=== PATIENT | male | born 1970 | race Hispanic/Latino ===

== ENCOUNTER 2021-12-03 07:21 | Observation (INO) | payer OTHER ==
[2021-12-01 09:55] VITALS: BP 156/80
[2021-12-01 10:13] LABS: BASOPHILS % (AUTO) 0.5 % (0.0-5.0); EOSINOPHILS % (AUTO) 1.9 % (0.0-8.0); HEMATOCRIT 38.4 % (42-54); LYMPHOCYTES % (AUTO) 14.5 % (21.0-51.0); MEAN CORPUSCULAR HEMOGLOBIN 31.7 pg (27.0-33.0); MEAN CORPUSCULAR HGB CONC 33.9 g/dL (32.0-36.0); MEAN CORPUSCULAR VOLUME 93.7 fL (79-99); MONOCYTES % (AUTO) 13.8 % (3.0-13.0); NEUTROPHILS % (AUTO) 69.1 % (40.0-77.0); PLATELET COUNT (AUTO) 217 K/uL (130-400); RED CELL DISTRIBUTION WIDTH 12.5 % (11.0-15.5); WHITE BLOOD COUNT (AUTO) 4.1 K/uL (4.8-10.8)
[2021-12-01 10:26] LABS: CREATININE 0.8 mg/dL (0.5-1.5); POTASSIUM 4.8 mmol/L (3.5-5.1)
[2021-12-01 10:28] LABS: INR 0.97 (0.85-1.15); PROTHROMBIN TIME 10.6 SEC (9.6-11.6)
[2021-12-01 10:29] LABS: PARTIAL THROMBOPLASTIN TIME 27.8 SEC (26.3-35.5)
[~2021-12-03] VITALS: Ht 185.4 cm; Wt 131.5 kg
[2021-12-03] VITALS (24 sets, daily range): BP systolic 125–151; BP diastolic 62–96
[2021-12-03] MEDS: CEFAZOLIN SODIUM 1 GM VIAL IVP SCH ×3 (06:00→18:21)
[~2021-12-03 07:21] MED LIST: CHOL500051 PO; DULO60CA64 PO; LACTATED RINGERS 1000ML 1,000 ML IV SCH; LOSA100T2 PO; MAGN400T56 PO; NIFE-40 PO
[2021-12-03] MEDS ORDERED: TRANEXAMIC ACID 1000MG/10ML ONE (09:27)
[2021-12-03] MEDS: [UNRECOGNIZED DRUG - OTHER] IV SCH ×10 (09:30→13:11)
[2021-12-03] MEDS ORDERED: ONDANSETRON 4MG INJ ONE (10:12)
[2021-12-03] MEDS ORDERED: MIDAZOLAM HCL 1 MG/ML 2ML VIAL ONE (10:12)
[2021-12-03] MEDS ORDERED: FENTANYL CITRATE PF 50 MCG/1 ML 2ML VIAL ONE (10:12)
[2021-12-03] MEDS ORDERED: PROPOFOL 10 MG/ML 20ML VIAL IV ONE ×2 (10:19→10:24)
[2021-12-03] MEDS ORDERED: ROCURONIUM 10MG/1ML SYR 10 MG/ML ML ONE ×2 (10:19→10:36)
[2021-12-03] MEDS ORDERED: DEXAMETHASONE SOD PHOSPHATE 10MG/ML 1ML VIAL ONE (10:21)
[2021-12-03] MEDS ORDERED: FENTANYL CITRATE PF 50 MCG/1 ML 5ML AMP IV ONE ×2 (11:08→13:21)
[2021-12-03] MEDS ORDERED: GLYCOPYRROLATE 1 MG/5 ML SYRINGE ONE (13:45)
[2021-12-03] MEDS ORDERED: NEOSTIGMINE 5MG/5ML SYR IV ONE (13:45)
[2021-12-03] MEDS: ACETAMINOPHEN 500 MG TABLET PO SCH ×2 (14:00→22:43)
[2021-12-03] MEDS ORDERED: KCL 20 MEQ ERTAB PO PRN (14:00)
[2021-12-03] MEDS: 0.9%NACL 1000ML 1,000 ML IV SCH ×2 (14:00→23:36)
[2021-12-03] MEDS ORDERED: HYDROCODONE/ACETAMINOPHEN 5/325 MG TAB PO PRN (14:00)
[2021-12-03] MEDS ORDERED: POTASSIUM CHLORIDE 10% ELIXIR 20 MEQ/15 ML UDCUP PO PRN (14:00)
[2021-12-03] MEDS ORDERED: ONDANSETRON 4MG INJ IVP PRN (14:00)
[2021-12-03] MEDS ORDERED: POTASSIUM CHLORIDE 20MEQ/100ML 100 ML IV PRN (14:00)
[2021-12-03] MEDS ORDERED: LIDOCAINE HCL-MPF 1% 2ML VIAL IV PRN (14:00)
[2021-12-03] MEDS ORDERED: MEPERIDINE-PF 25 MG/ML SYG ONE ×3 (14:09→14:39)
[2021-12-03] MEDS: MORPHINE 4 MG SYG IVP PRN ×2 (18:00→23:21)
[2021-12-03] MEDS: TRAMADOL HCL 50 MG TABLET PO SCH (18:21)
[2021-12-03] MEDS: MAGNESIUM OXIDE 400 MG TABLET PO SCH (20:21)
[2021-12-03] MEDS: ASPIRIN 81 MG EC TAB PO SCH (20:21)
[2021-12-03] MEDS: FAMOTIDINE 20MG TAB PO SCH (20:21)
[2021-12-03] MEDS: HYDROCODONE/ACETAMINOPHEN 10/325 MG TAB PO PRN (20:21)
[2021-12-03] MEDS: KETOROLAC 15MG/ML VIAL (15MG/ML) IV PRN (20:21)
[2021-12-04] MEDS: CEFAZOLIN SODIUM 1 GM VIAL IVP SCH (01:44)
[2021-12-04] MEDS: TRAMADOL HCL 50 MG TABLET PO SCH ×4 (01:44→17:57)
[2021-12-04 03:31] VITALS: BP_SYST 112; BP_SYST 163; BP_DIAS 75; BP_DIAS 77
[2021-12-04 05:28] LABS: HEMATOCRIT 31.5 % (42-54); MEAN CORPUSCULAR HEMOGLOBIN 31.9 pg (27.0-33.0); MEAN CORPUSCULAR HGB CONC 33.3 g/dL (32.0-36.0); MEAN CORPUSCULAR VOLUME 95.7 fL (79-99); RED BLOOD CELL COUNT(AUTO) 3.29 MIL/uL (4.50-6.20); RED CELL DISTRIBUTION WIDTH 12.9 % (11.0-15.5); WHITE BLOOD COUNT (AUTO) 6.8 K/uL (4.8-10.8)
[2021-12-04 05:40] LABS: CREATININE 0.8 mg/dL (0.5-1.5); POTASSIUM 4.2 mmol/L (3.5-5.1)
[2021-12-04] MEDS: ACETAMINOPHEN 500 MG TABLET PO SCH ×3 (06:00→21:35)
[2021-12-04 08:00] VITALS: BP 124/74
[2021-12-04] MEDS: FAMOTIDINE 20MG TAB PO SCH ×2 (09:07→20:30)
[2021-12-04] MEDS: ASPIRIN 81 MG EC TAB PO SCH ×2 (09:07→20:30)
[2021-12-04] MEDS: POLYETHYLENE GLYCOL 3350 17 GM POWD.PACK PO SCH (09:07)
[2021-12-04] MEDS: MAGNESIUM OXIDE 400 MG TABLET PO SCH ×2 (09:07→20:30)
[2021-12-04] MEDS: LOSARTAN 100 MG TABLET PO SCH (09:07)
[2021-12-04] MEDS: DULOXETINE HCL 30 MG CAP PO SCH (09:07)
[2021-12-04] MEDS: NIFEDIPINE ER 30 MG TAB PO SCH (09:07)
[2021-12-04] MEDS: 0.9%NACL 1000ML 1,000 ML IV SCH (09:08)
[2021-12-04] MEDS: MORPHINE 4 MG SYG IVP PRN ×2 (09:08→22:54)
[2021-12-04 12:00] VITALS: BP 117/71
[2021-12-04 16:00] VITALS: BP 127/80
[2021-12-04 19:00] VITALS: BP 108/68
[2021-12-04] MEDS: HYDROCODONE/ACETAMINOPHEN 10/325 MG TAB PO PRN (20:33)
[2021-12-05] VITALS: BP 117/77
[2021-12-05] MEDS: KETOROLAC 15MG/ML VIAL (15MG/ML) IV PRN (02:34)
[2021-12-05 04:00] VITALS: BP 128/84
[2021-12-05] MEDS: ACETAMINOPHEN 500 MG TABLET PO SCH (04:11)
[2021-12-05] MEDS: TRAMADOL HCL 50 MG TABLET PO SCH ×2 (05:16)
[2021-12-05 08:14] VITALS: BP 133/77
[2021-12-05] MEDS: DULOXETINE HCL 30 MG CAP PO SCH (09:51)
[2021-12-05] MEDS: MAGNESIUM OXIDE 400 MG TABLET PO SCH (09:51)
[2021-12-05] MEDS: FAMOTIDINE 20MG TAB PO SCH (09:51)
[2021-12-05] MEDS: LOSARTAN 100 MG TABLET PO SCH (09:51)
[2021-12-05] MEDS: NIFEDIPINE ER 30 MG TAB PO SCH (09:51)
[2021-12-05] MEDS: POLYETHYLENE GLYCOL 3350 17 GM POWD.PACK PO SCH (09:51)
[2021-12-05] MEDS: ASPIRIN 81 MG EC TAB PO SCH (09:51)
[2021-12-05 11:37] VITALS: BP 129/75
[2021-12-06] MEDS ORDERED: BISACODYL 10 MG SUPP.RECT RC PRN (14:00)
== END 2021-12-05 12:40 | disposition home or self-care (01) ==
LOC: DAH 07:21 → DAHIP 07:22 → EDSTATUS 09:00 → 4DH 15:21
PROVIDERS: ADMIT Orthopaedic Surgery; ATTEND Orthopaedic Surgery
DX: M17.12 Unilateral primary osteoarthritis, left knee (principal); Z20.822 Contact with and (suspected) exposure to COVID-19; R26.89 Other abnormalities of gait and mobility; M21.162 Varus deformity, not elsewhere classified, left knee; M65.9 Synovitis and tenosynovitis, unspecified; E66.01 Morbid (severe) obesity due to excess calories; E87.1 Hypo-osmolality and hyponatremia; E11.9 Type 2 diabetes mellitus without complications; I10 Essential (primary) hypertension; Z68.38 Body mass index [BMI] 38.0-38.9, adult; Z96.652 Presence of left artificial knee joint; Z79.899 Other long term (current) drug therapy
CPT/HCPCS: 0055T; 27447; 36415; 64447; 76942; 80048; 85025; 85027; 85610; 85730; 87635; 87641; 93005; 96374; 96375; 96376; 97039; C9803; G0378; J0171; J0690; J0735; J1100; J1885; J2175; J2250; J2270; J2405; J2704; J2710; J2795; J3010; J3490; J7030; J7120

== ENCOUNTER → 2022-02-17 | Outpatient (CLI) | payer OTHER ==
[~2022-02-17] MED LIST changes: -LACTATED RINGERS 1000ML 1,000 ML IV SCH
== END | disposition home or self-care (01) ==
LOC: RAH 08:24
PROVIDERS: ATTEND Orthopaedic Surgery
DX: S83.281A Other tear of lateral meniscus, current injury, right knee, initial encounter (principal); M25.561 Pain in right knee; M17.11 Unilateral primary osteoarthritis, right knee; X58.XXXA Exposure to other specified factors, initial encounter; Y93.89 Activity, other specified; Y92.89 Other specified places as the place of occurrence of the external cause; Y99.8 Other external cause status
CPT/HCPCS: 73721

== ENCOUNTER 2022-05-31 07:52 | Observation (INO) | payer OTHER ==
[2022-05-25 11:24] LABS: BASOPHILS % (AUTO) 0.8 % (0.0-5.0); EOSINOPHILS % (AUTO) 1.6 % (0.0-8.0); HEMATOCRIT 35.5 % (42-54); LYMPHOCYTES % (AUTO) 17.6 % (21.0-51.0); MEAN CORPUSCULAR HEMOGLOBIN 28.9 pg (27.0-33.0); MEAN CORPUSCULAR VOLUME 87.7 fL (79-99); MONOCYTES % (AUTO) 22.9 % (3.0-13.0); NEUTROPHILS % (AUTO) 57.1 % (40.0-77.0); PLATELET COUNT (AUTO) 190 K/uL (130-400); RED BLOOD CELL COUNT(AUTO) 4.05 MIL/uL (4.50-6.20); RED CELL DISTRIBUTION WIDTH 13.9 % (11.0-15.5); WHITE BLOOD COUNT (AUTO) 2.5 K/uL (4.8-10.8)
[2022-05-25 11:37] LABS: INR 0.98 (0.85-1.15); PROTHROMBIN TIME 10.7 SEC (9.6-11.6)
[2022-05-25 11:40] LABS: CREATININE 0.8 mg/dL (0.5-1.5); POTASSIUM 4.6 mmol/L (3.5-5.1)
[2022-05-25 13:10] LABS: LYMPHOCYTES % (MANUAL) 20 % (22-44); MONOCYTES % (MANUAL) 24 % (2-9); SEGMENTED NEUTROPHILS % 56 % (40-70)
[2022-05-25 13:11] LABS: MAN.DIFF COMMENT-IMPRESSION MANUAL DIFFERENTIAL; PLATELET MORPHOLOGY COMMENT ADEQUATE
[2022-05-30 10:37] VITALS: BP 159/84
[2022-05-31] VITALS (26 sets, daily range): BP systolic 102–155; BP diastolic 60–98
[~2022-05-31] VITALS: Ht 185.4 cm; Wt 132.1 kg
[2022-05-31] MEDS: CEFAZOLIN SODIUM 1 GM VIAL IVPB SCH ×2 (05:00→18:22)
[~2022-05-31 07:52] MED LIST changes: +AMLO-257 PO; -DULO60CA64 PO; +FAMO20TA8 PO; -NIFE-40 PO; +folic acid PO
[2022-05-31] MEDS ORDERED: CEFAZOLIN SODIUM 2 GM VIAL ONE (08:49)
[2022-05-31] MEDS ORDERED: LACTATED RINGERS 1000ML 1,000 ML IV ONE (08:49)
[2022-05-31] MEDS ORDERED: ZINC50TA64 PO (09:04)
[2022-05-31] MEDS ORDERED: DULO60CA64 PO (09:04)
[2022-05-31] MEDS ORDERED: TRANEXAMIC ACID 1000MG/10ML ONE ×2 (10:50→13:13)
[2022-05-31] MEDS ORDERED: LIDOCAINE PF 100MG/5ML (2%) SYRINGE 5ML ONE (13:04)
[2022-05-31] MEDS ORDERED: MIDAZOLAM HCL 1 MG/ML 2ML VIAL ONE (13:05)
[2022-05-31] MEDS ORDERED: PROPOFOL 10 MG/ML 20ML VIAL IV ONE (13:05)
[2022-05-31] MEDS ORDERED: ROCURONIUM 10MG/1ML SYR 10 MG/ML ML ONE ×2 (13:06→14:51)
[2022-05-31] MEDS ORDERED: FENTANYL CITRATE PF 50 MCG/1 ML 2ML VIAL ONE (13:06)
[2022-05-31] MEDS ORDERED: ROPIVACAINE 0.5% 5MG/ML 30ML IJ ONE (13:28)
[2022-05-31] MEDS ORDERED: CEFAZOLIN SODIUM 2 GM VIAL IVPB ONE (13:35)
[2022-05-31] MEDS ORDERED: TRANEXAMIC ACID 1000MG/10ML IV ONE (13:40)
[2022-05-31] MEDS ORDERED: EPHEDRINE SULFATE 50 MG/ML AMPULE ONE (14:05)
[2022-05-31] MEDS ORDERED: ONDANSETRON 4MG INJ ONE (14:24)
[2022-05-31] MEDS ORDERED: DEXAMETHASONE SOD PHOSPHATE 10MG/ML 1ML VIAL ONE (14:25)
[2022-05-31] MEDS ORDERED: KETOROLAC 30MG VIAL (30MG/ML) ONE (14:25)
[2022-05-31] MEDS ORDERED: HYDROMORPHONE 1 MG INJ ONE ×2 (15:27→15:30)
[2022-05-31] MEDS ORDERED: SUGAMMADEX SODIUM 200 MG/2 ML VIAL IV ONE (15:29)
[2022-05-31] MEDS ORDERED: POTASSIUM CHLORIDE 20MEQ/100ML 100 ML IV PRN (16:00)
[2022-05-31] MEDS ORDERED: KCL 20 MEQ ERTAB PO PRN (16:00)
[2022-05-31] MEDS ORDERED: LIDOCAINE HCL-MPF 1% 2ML VIAL IV PRN (16:00)
[2022-05-31] MEDS ORDERED: TRANEXAMIC ACID 1000MG/10ML IV SCH (16:00)
[2022-05-31] MEDS ORDERED: 0.9%NACL 1000ML 1,000 ML IV SCH (16:00)
[2022-05-31] MEDS ORDERED: POTASSIUM CHLORIDE 10% ELIXIR 20 MEQ/15 ML UDCUP PO PRN (16:00)
[2022-05-31] MEDS ORDERED: HYDROCODONE/ACETAMINOPHEN 5/325 MG TAB PO PRN (16:00)
[2022-05-31] MEDS ORDERED: ONDANSETRON 4MG INJ IVP PRN (16:00)
[2022-05-31] MEDS: ACETAMINOPHEN 1,000 MG/100 ML VIAL IV SCH ×2 (16:20→20:38)
[2022-05-31] MEDS ORDERED: MEPERIDINE-PF 25 MG/ML SYG ONE (16:24)
[2022-05-31] MEDS: CALDOLOR 800MG+NS 250ML 250 ML IV SCH (17:28)
[2022-05-31] MEDS: MORPHINE 4 MG SYG IVP PRN (17:28)
[2022-05-31] MEDS ORDERED: IBUPROFEN 800MG + NS 250ML IV SCH (19:00)
[2022-05-31] MEDS: FAMOTIDINE 20MG TAB PO SCH (20:36)
[2022-05-31] MEDS: CEFAZOLIN SODIUM 1 GM VIAL IVP SCH (20:36)
[2022-05-31] MEDS: ASPIRIN 81 MG EC TAB PO SCH (20:37)
[2022-05-31] MEDS: MAGNESIUM OXIDE 400 MG TABLET PO SCH (20:37)
[2022-06-01] VITALS (7 sets, daily range): BP systolic 106–157; BP diastolic 52–85
[2022-06-01] MEDS ORDERED: ACETAMINOPHEN 500 MG TABLET ONE (02:36)
[2022-06-01] MEDS: CALDOLOR 800MG+NS 250ML 250 ML IV SCH ×2 (02:46→11:18)
[2022-06-01] MEDS ORDERED: ACETAMINOPHEN 500 MG TABLET PO ONE (03:00)
[2022-06-01] MEDS: ACETAMINOPHEN 1,000 MG/100 ML VIAL IV SCH (03:24)
[2022-06-01] MEDS: CEFAZOLIN SODIUM 1 GM VIAL IVP SCH (04:41)
[2022-06-01] MEDS: HYDROCODONE/ACETAMINOPHEN 10/325 MG TAB PO PRN ×4 (04:47→18:52)
[2022-06-01 05:28] LABS: HEMATOCRIT 29.2 % (42-54); MEAN CORPUSCULAR HEMOGLOBIN 29.8 pg (27.0-33.0); MEAN CORPUSCULAR HGB CONC 33.2 g/dL (32.0-36.0); MEAN CORPUSCULAR VOLUME 89.6 fL (79-99); RED BLOOD CELL COUNT(AUTO) 3.26 MIL/uL (4.50-6.20); RED CELL DISTRIBUTION WIDTH 13.5 % (11.0-15.5); WHITE BLOOD COUNT (AUTO) 5.9 K/uL (4.8-10.8)
[2022-06-01 05:38] LABS: CREATININE 0.8 mg/dL (0.5-1.5); POTASSIUM 4.3 mmol/L (3.5-5.1)
[2022-06-01] MEDS: ***HM***(Cholecalciferol (Vitamin D3) (Vitamin D3) 125 MCG) PO SCH (09:00)
[2022-06-01] MEDS: FAMOTIDINE 20MG TAB PO SCH ×3 (09:00→19:47)
[2022-06-01] MEDS: DULOXETINE HCL 30 MG CAP PO SCH (09:04)
[2022-06-01] MEDS: AMLODIPINE 5 MG TAB PO SCH (09:04)
[2022-06-01] MEDS: MAGNESIUM OXIDE 400 MG TABLET PO SCH ×2 (09:04→19:47)
[2022-06-01] MEDS: ZINC SULFATE 220 CAPSULE PO SCH (09:04)
[2022-06-01] MEDS: LOSARTAN 100 MG TABLET PO SCH (09:04)
[2022-06-01] MEDS: POLYETHYLENE GLYCOL 3350 17 GM POWD.PACK PO SCH (09:04)
[2022-06-01] MEDS: ASPIRIN 81 MG EC TAB PO SCH ×2 (09:04→19:47)
[2022-06-01] MEDS: FOLIC ACID 1 MG TABLET PO SCH (09:04)
[2022-06-01] MEDS: MORPHINE 4 MG SYG IVP PRN (11:18)
[2022-06-01] MEDS: CEFAZOLIN SODIUM 1 GM VIAL IVPB SCH (19:17)
[2022-06-02 03:57] VITALS: BP 116/74
[2022-06-02] MEDS: HYDROCODONE/ACETAMINOPHEN 10/325 MG TAB PO PRN ×3 (04:02→13:05)
[2022-06-02] MEDS: FAMOTIDINE 20MG TAB PO SCH ×2 (07:55→09:01)
[2022-06-02] MEDS: ***HM***(Cholecalciferol (Vitamin D3) (Vitamin D3) 125 MCG) PO SCH (07:55)
[2022-06-02 08:00] VITALS: BP 117/70
[2022-06-02] MEDS ORDERED: FERROUS GLUCONATE 324 TABLET PO SCH (09:00)
[2022-06-02] MEDS: LOSARTAN 100 MG TABLET PO SCH (09:00)
[2022-06-02] MEDS: MAGNESIUM OXIDE 400 MG TABLET PO SCH (09:01)
[2022-06-02] MEDS: ASPIRIN 81 MG EC TAB PO SCH (09:01)
[2022-06-02] MEDS: ZINC SULFATE 220 CAPSULE PO SCH (09:01)
[2022-06-02] MEDS: FOLIC ACID 1 MG TABLET PO SCH (09:01)
[2022-06-02] MEDS: DULOXETINE HCL 30 MG CAP PO SCH (09:01)
[2022-06-02] MEDS: AMLODIPINE 5 MG TAB PO SCH (09:02)
[2022-06-02] MEDS: POLYETHYLENE GLYCOL 3350 17 GM POWD.PACK PO SCH (09:02)
[2022-06-02 12:00] VITALS: BP 123/75
[2022-06-03] MEDS ORDERED: BISACODYL 10 MG SUPP.RECT RC PRN (16:00)
== END 2022-06-02 13:45 | disposition home or self-care (01) ==
LOC: DAH 07:52 → DAHIP 07:53 → DAH 07:53 → 4AH 17:00
PROVIDERS: ADMIT Orthopaedic Surgery; ATTEND Orthopaedic Surgery
DX: M17.11 Unilateral primary osteoarthritis, right knee (principal); Z20.822 Contact with and (suspected) exposure to COVID-19; E66.9 Obesity, unspecified; M06.4 Inflammatory polyarthropathy; M65.9 Synovitis and tenosynovitis, unspecified; G89.29 Other chronic pain; Z96.651 Presence of right artificial knee joint; Z79.899 Other long term (current) drug therapy; Z98.890 Other specified postprocedural states; Z68.38 Body mass index [BMI] 38.0-38.9, adult
CPT/HCPCS: 80048 ×2; 85025; 85610; 85730; 87426; 36415 ×2; 87641; 27447; 96365; 96366 ×2; 96375; 96367; 96376; 85027; 97161; 97039 ×3; 97116 ×3; 97530 ×2; S2900; A6260; G0378 ×43; A4663; J7030; A4649 ×4; J7120; J3010; J0690 ×4; J1170 ×2; J3490 ×4; J1100; J2001; J2250; J2704; J2405; J2270 ×2; J1885; J2175; J2795; J1741 ×3; G0168; A4930; C1776 ×4; A6255; A6254; A4215; A4223; A4222; A4221

== ENCOUNTER 2022-07-21 07:14 | Observation (INO) | payer OTHER ==
[2022-07-20 16:12] VITALS: BP 155/83
[2022-07-20 16:19] LABS: BASOPHILS % (AUTO) 0.7 % (0.0-5.0); EOSINOPHILS % (AUTO) 1.3 % (0.0-8.0); HEMATOCRIT 30.2 % (42-54); LYMPHOCYTES % (AUTO) 19.6 % (21.0-51.0); MEAN CORPUSCULAR HEMOGLOBIN 26.2 pg (27.0-33.0); MEAN CORPUSCULAR HGB CONC 32.5 g/dL (32.0-36.0); MEAN CORPUSCULAR VOLUME 80.7 fL (79-99); NEUTROPHILS % (AUTO) 62.4 % (40.0-77.0); PLATELET COUNT (AUTO) 324 K/uL (130-400); RED BLOOD CELL COUNT(AUTO) 3.74 MIL/uL (4.50-6.20); WHITE BLOOD COUNT (AUTO) 4.6 K/uL (4.8-10.8)
[2022-07-20 16:33] LABS: CREATININE 0.7 mg/dL (0.5-1.5); POTASSIUM 4.4 mmol/L (3.5-5.1)
[2022-07-21] VITALS (29 sets, daily range): BP systolic 83–164; BP diastolic 52–119
[~2022-07-21] VITALS: Ht 185.4 cm; Wt 132.0 kg
[~2022-07-21 07:14] MED LIST changes: +DULO60CA64 PO; +LACTATED RINGERS 1000ML 1,000 ML IV SCH; +ZINC50TA64 PO
[2022-07-21] MEDS ORDERED: PROPOFOL 10 MG/ML 20ML VIAL IV ONE (11:32)
[2022-07-21] MEDS ORDERED: MIDAZOLAM HCL 1 MG/ML 2ML VIAL ONE (11:32)
[2022-07-21] MEDS ORDERED: FENTANYL CITRATE PF 50 MCG/1 ML 2ML VIAL ONE (11:34)
[2022-07-21] MEDS ORDERED: ROCURONIUM 10MG/1ML SYR 10 MG/ML ML ONE ×2 (11:39→12:00)
[2022-07-21] MEDS ORDERED: ESMOLOL HCL 10 MG/ML 10 ML VIAL ONE (12:12)
[2022-07-21] MEDS ORDERED: FENTANYL CITRATE PF 50 MCG/1 ML 5ML AMP IV ONE (12:16)
[2022-07-21] MEDS ORDERED: CEFAZOLIN SODIUM 2 GM VIAL IVPB ONE (12:29)
[2022-07-21] MEDS ORDERED: CEFAZOLIN SODIUM 1 GM VIAL ONE (12:31)
[2022-07-21] MEDS ORDERED: PHENYLEPHRINE HCL 10 MG/ML 1ML VIAL IV ONE (12:33)
[2022-07-21] MEDS ORDERED: MEPERIDINE-PF 25 MG/ML SYG ONE ×2 (13:29→13:49)
[2022-07-21] MEDS ORDERED: POTASSIUM CHLORIDE 20MEQ/100ML 100 ML IV PRN (13:30)
[2022-07-21] MEDS ORDERED: LIDOCAINE HCL-MPF 1% 2ML VIAL IV PRN (13:30)
[2022-07-21] MEDS ORDERED: POTASSIUM CHLORIDE 10% ELIXIR 20 MEQ/15 ML UDCUP PO PRN (13:30)
[2022-07-21] MEDS ORDERED: HYDROCODONE/ACETAMINOPHEN 5/325 MG TAB PO PRN (13:30)
[2022-07-21] MEDS ORDERED: ONDANSETRON 4MG INJ IVP PRN (13:30)
[2022-07-21] MEDS ORDERED: KCL 20 MEQ ERTAB PO PRN (13:30)
[2022-07-21] MEDS ORDERED: KETOROLAC 30MG VIAL (30MG/ML) ONE (13:40)
[2022-07-21] MEDS ORDERED: HYDROMORPHONE 1 MG INJ ONE ×2 (13:45→14:08)
[2022-07-21 17:03] LABS: INR 1.03 (0.85-1.15); PROTHROMBIN TIME 11.2 SEC (9.6-11.6)
[2022-07-21 17:04] LABS: PARTIAL THROMBOPLASTIN TIME 27.5 SEC (26.3-35.5)
[2022-07-21] MEDS: CEFTRIAXONE 2GM VIAL IVP SCH (18:14)
[2022-07-21] MEDS: ACETAMINOPHEN 500 MG TABLET PO SCH ×2 (18:14→19:08)
[2022-07-21] MEDS: 0.9%NACL 1000ML 1,000 ML IV SCH ×2 (18:15→19:20)
[2022-07-21] MEDS ORDERED: CEFAZOLIN SODIUM 1 GM VIAL IVPB SCH (18:30)
[2022-07-21] MEDS ORDERED: FAMOTIDINE 20MG TAB ONE (19:12)
[2022-07-21] MEDS ORDERED: ASPIRIN 81 MG EC TAB ONE (19:13)
[2022-07-21] MEDS ORDERED: MAGNESIUM OXIDE 400 MG TABLET PO ONE (19:13)
[2022-07-21] MEDS: FAMOTIDINE 20MG TAB PO SCH (19:19)
[2022-07-21] MEDS: ASPIRIN 81 MG EC TAB PO SCH (19:19)
[2022-07-21] MEDS: MAGNESIUM OXIDE 400 MG TABLET PO SCH (19:19)
[2022-07-21] MEDS: HYDROCODONE/ACETAMINOPHEN 10/325 MG TAB PO PRN (19:19)
[2022-07-21 21:37] LABS: APPEARANCE BODY FLUID BLOODY (CLEAR); COLOR,BODY FLUID RED (LT YELLOW); SPECIMENTYPE,BODY FLUID ASPIRATE
[2022-07-21 21:38] LABS: BODY FLUID RBC 30350 /cu. mm.; BODY FLUID WBC 9 /cu. mm.; TOTAL VOLUME,BODY FLUID 2 mL
[2022-07-21 21:43] LABS: BF LYMPHOCYTE 7 %
[2022-07-22] VITALS: BP 134/86
[2022-07-22] MEDS: HYDROCODONE/ACETAMINOPHEN 10/325 MG TAB PO PRN ×3 (00:12→19:56)
[2022-07-22] MEDS: MORPHINE 4 MG SYG IVP PRN ×2 (03:03→08:43)
[2022-07-22 04:00] VITALS: BP 146/79
[2022-07-22 04:16] LABS: HEMATOCRIT 26.1 % (42-54); MEAN CORPUSCULAR HEMOGLOBIN 25.5 pg (27.0-33.0); MEAN CORPUSCULAR HGB CONC 30.3 g/dL (32.0-36.0); MEAN CORPUSCULAR VOLUME 84.2 fL (79-99); PLATELET COUNT (AUTO) 252 K/uL (130-400); RED CELL DISTRIBUTION WIDTH 15.3 % (11.0-15.5); WHITE BLOOD COUNT (AUTO) 3.7 K/uL (4.8-10.8)
[2022-07-22 05:07] LABS: CREATININE 0.8 mg/dL (0.5-1.5); POTASSIUM 3.8 mmol/L (3.5-5.1)
[2022-07-22] MEDS: ACETAMINOPHEN 500 MG TABLET PO SCH ×3 (05:18→19:56)
[2022-07-22 08:05] VITALS: BP 142/76
[2022-07-22] MEDS: ASPIRIN 81 MG EC TAB PO SCH ×2 (08:39→19:57)
[2022-07-22] MEDS: POLYETHYLENE GLYCOL 3350 17 GM POWD.PACK PO SCH (08:39)
[2022-07-22] MEDS: AMLODIPINE 5 MG TAB PO SCH (08:40)
[2022-07-22] MEDS: LOSARTAN 100 MG TABLET PO SCH (08:40)
[2022-07-22] MEDS: DULOXETINE HCL 30 MG CAP PO SCH (08:40)
[2022-07-22] MEDS: FOLIC ACID 1 MG TABLET PO SCH (08:40)
[2022-07-22] MEDS: MAGNESIUM OXIDE 400 MG TABLET PO SCH ×2 (08:40→19:57)
[2022-07-22] MEDS: FAMOTIDINE 20MG TAB PO SCH ×3 (08:40→19:56)
[2022-07-22] MEDS: VIT D3 125 MCG PO SCH (09:00)
[2022-07-22] MEDS: 0.9%NACL 1000ML 1,000 ML IV SCH (09:30)
[2022-07-22 11:55] VITALS: BP 145/82
[2022-07-22 15:55] VITALS: BP 156/100
[2022-07-22] MEDS: CEFTRIAXONE 2GM VIAL IVP SCH (16:05)
[2022-07-22 20:00] VITALS: BP 140/86
[2022-07-23] VITALS (7 sets, daily range): BP systolic 135–156; BP diastolic 79–94
[2022-07-23] MEDS: ACETAMINOPHEN 500 MG TABLET PO SCH ×3 (05:30→20:57)
[2022-07-23] MEDS: HYDROCODONE/ACETAMINOPHEN 10/325 MG TAB PO PRN ×2 (05:31→20:58)
[2022-07-23] MEDS: FAMOTIDINE 20MG TAB PO SCH ×3 (07:19→20:57)
[2022-07-23] MEDS: VIT D3 125 MCG PO SCH (07:20)
[2022-07-23] MEDS: LOSARTAN 100 MG TABLET PO SCH (08:17)
[2022-07-23] MEDS: POLYETHYLENE GLYCOL 3350 17 GM POWD.PACK PO SCH (08:17)
[2022-07-23] MEDS: ASPIRIN 81 MG EC TAB PO SCH ×2 (08:17→20:56)
[2022-07-23] MEDS: AMLODIPINE 5 MG TAB PO SCH (08:18)
[2022-07-23] MEDS: FOLIC ACID 1 MG TABLET PO SCH (08:18)
[2022-07-23] MEDS: DULOXETINE HCL 30 MG CAP PO SCH (08:18)
[2022-07-23] MEDS: MAGNESIUM OXIDE 400 MG TABLET PO SCH ×2 (08:18→20:57)
[2022-07-23] MEDS ORDERED: CEFT2VIA12 IVP (08:53)
[2022-07-23] MEDS: CEFTRIAXONE 2GM VIAL IVP SCH (13:18)
[2022-07-24 03:41] VITALS: BP 135/91
[2022-07-24] MEDS: HYDROCODONE/ACETAMINOPHEN 10/325 MG TAB PO PRN ×2 (05:08→11:25)
[2022-07-24] MEDS: ACETAMINOPHEN 500 MG TABLET PO SCH ×2 (05:09→14:43)
[2022-07-24 07:05] VITALS: BP 144/86
[2022-07-24] MEDS: FAMOTIDINE 20MG TAB PO SCH ×2 (07:49→08:59)
[2022-07-24] MEDS: MAGNESIUM OXIDE 400 MG TABLET PO SCH (08:58)
[2022-07-24] MEDS: AMLODIPINE 5 MG TAB PO SCH (08:58)
[2022-07-24] MEDS: ASPIRIN 81 MG EC TAB PO SCH (08:58)
[2022-07-24] MEDS: LOSARTAN 100 MG TABLET PO SCH (08:59)
[2022-07-24] MEDS: DULOXETINE HCL 30 MG CAP PO SCH (08:59)
[2022-07-24] MEDS: FOLIC ACID 1 MG TABLET PO SCH (08:59)
[2022-07-24] MEDS: POLYETHYLENE GLYCOL 3350 17 GM POWD.PACK PO SCH (09:00)
[2022-07-24] MEDS: VIT D3 125 MCG PO SCH (09:00)
[2022-07-24] MEDS ORDERED: CEFTRIAXONE 2GM VIAL IVPB SCH (09:00)
[2022-07-24 11:05] VITALS: BP 136/86
[2022-07-24] MEDS ORDERED: BISACODYL 10 MG SUPP.RECT RC PRN (13:30)
== END 2022-07-24 16:20 | disposition home or self-care (01) ==
LOC: DAH 07:14 → DAHIP 07:15 → DAH 07:15 → 4AH 15:42
PROVIDERS: ADMIT Orthopaedic Surgery; ATTEND Orthopaedic Surgery
DX: M25.561 Pain in right knee (principal); Z20.822 Contact with and (suspected) exposure to COVID-19; E66.9 Obesity, unspecified; I10 Essential (primary) hypertension; Z96.651 Presence of right artificial knee joint; Z79.899 Other long term (current) drug therapy; Z98.890 Other specified postprocedural states; Z68.38 Body mass index [BMI] 38.0-38.9, adult; W19.XXXA Unspecified fall, initial encounter; Y92.89 Other specified places as the place of occurrence of the external cause; Y93.89 Activity, other specified; Y99.8 Other external cause status
CPT/HCPCS: 80048 ×2; 85025; 87426; 36415 ×3; 27310; 96374; 89051; 85610; 85730; 87071; 87076; 87205; 96376 ×3; 96375; 85027; 97161; 97039 ×4; 97116 ×4; A6260; G0378 ×73; A4663; J7120; A4649 ×2; J3010 ×2; J0690 ×2; J1170 ×2; J0696 ×4; J3490; J2250; J2704; J1885; J2175 ×2; J2370; A4215; A4223; A4222; A4221; J2270 ×2; C1894

== ENCOUNTER 2022-09-26 04:02 | Emergency (ER) | payer OTHER ==
[~2022-09-26] VITALS: Ht 185.4 cm; Wt 127.9 kg
[~2022-09-26 04:02] MED LIST changes: -CHOL500051 PO; -DULO60CA64 PO; -FAMO20TA8 PO; -LACTATED RINGERS 1000ML 1,000 ML IV SCH; -LOSA100T2 PO; +LOSA100T3 PO; -MAGN400T56 PO; -ZINC50TA64 PO; -folic acid PO
[2022-09-26 04:59] VITALS: BP 136/59
== END 2022-09-26 05:12 | disposition home or self-care (01) ==
LOC: EDH 04:02
DX: M17.11 Unilateral primary osteoarthritis, right knee (principal); E11.9 Type 2 diabetes mellitus without complications; I10 Essential (primary) hypertension; F10.129 Alcohol abuse with intoxication, unspecified; Z79.899 Other long term (current) drug therapy; Z90.49 Acquired absence of other specified parts of digestive tract; Z96.651 Presence of right artificial knee joint